=== PATIENT | female | born 1970 | race Caucasian/White ===

== ENCOUNTER 2022-03-11 07:40 | Emergency (ER) | payer OTHER ==
[2022-03-11] MEDS ORDERED: Meclizine 25 MG Tab PO ONE (07:48)
[2022-03-11] MEDS ORDERED: Ondansetron 4 MG Tab.DIS PO ONE (07:48)
[2022-03-11] MEDS ORDERED: Ondansetron 4 MG Tab.DIS ONE (07:50)
[2022-03-11] MEDS ORDERED: Sodium Chloride 0.9% 10 ML Syringe FLUSH PRN (08:13)
[2022-03-11] MEDS ORDERED: Sodium Chloride 0.9% 500 ML IV SCH (08:15)
[2022-03-11] MEDS ORDERED: Sodium Chloride 0.9% 1,000 ML IV ONE (08:55)
[2022-03-11 11:00] LABS: CORONAVIRUS COVID-19 NAA NEGATIVE (NEGATIVE); RESPIRATORY SYNCYTIAL VIR NAA NEGATIVE (NEGATIVE)
== END 2022-03-11 12:34 | disposition home or self-care (01) ==
LOC: LL.ED 07:40
DX: R42 Dizziness and giddiness (principal); Z20.822 Contact with and (suspected) exposure to COVID-19
CPT/HCPCS: 0241U; 36415; 70450; 80053; 85025; 96360; 96361; 99284-25; A9270-GY; J7030; J7040

== ENCOUNTER 2023-04-23 08:07 | Emergency (ER) | payer OTHER ==
[2023-04-23] MEDS ORDERED: Naproxen 250 MG Tab PO ONE (09:17)
== END 2023-04-23 10:17 | disposition home or self-care (01) ==
LOC: LL.ED 08:07
DX: S89.91XA Unspecified injury of right lower leg, initial encounter (principal); W00.0XXA Fall on same level due to ice and snow, initial encounter
CPT/HCPCS: 73562-RT; 73590-RT; 99283